=== PATIENT | male | born 1975 | race African-American/Black ===

== ENCOUNTER → 2018-12-20 | Outpatient (CLI) | payer BC ==
--- NOTE | 2018-12-20 13:02 | PCVCIMAG ---
APPROVED REPORT Study performed: 12/20/2018 10:24:26 EXAM: Comprehensive 2D, Doppler, and color-flow Echocardiogram Patient Location: Echo lab Room #: 2Status: routine BSA: 2.06 HR: 60 bpmBP: 172/124 mmHg Rhythm: NSR Other Information Study Quality: Good Risk Factors: Cardiac Risk Factors: HTN, FHX of CAD Indications Hypertension/HDD Elevated CPK 2D Dimensions IVSd: 13.78 (7-11mm)LVOT Diam: 22.39 (18-24mm) LVDd: 48.33 mm PWd: 8.54 (7-11mm)Ascending Ao: 27.79 (22-36mm) LVDs: 27.15 (25-40mm) Left Atrium: 39.25 (27-40mm) Aortic Root: 27.65 mm LV Single Plane 4CH: 55.82 % LV Single Plane 2CH: 55.32 % Biplane EF: 54.9 % Volumes Left Atrial Volume (Systole) Single Plane 4CH: 51.11 mLSingle Plane 2CH: 21.66 mL Biplane LA Volume: 33.00 mLLA ESV Index: 16.00 mL/m2 Aortic Valve AoV Peak Young.: 1.28 m/s AO Peak Gr.: 6.58 mmHgLVOT Max P.10 mmHg LVOT Max V: 1.01 m/s SHELIA Vmax: 3.11 cm2 Mitral Valve E/A Ratio: 1.1 MV Decel. Time: 180.84 ms MV E Max Young.: 0.62 m/s MV A Young.: 0.56 m/s IVRT: 96.89 ms TDI E/Lateral E': 6.89E/Medial E': 8.86 Medial E' Young.: 0.07 m/s Lateral E' Young.: 0.09 m/s Pulmonary Valve PV Peak Young.: 1.11 m/sPV Peak Gr.: 4.94 mmHg Pulmonary Vein P Vein S: 0.60 m/sP Vein A: 0.24 m/s P Vein D: 0.46 m/sP Vein A Dur.: 121.1 msec P Vein S/D Ratio: 1.30 Tricuspid Valve TR Peak Young.: 0.98 m/s TR Peak Gr.: 3.87 mmHg TV Vmax: 0.56 m/sPA Pressure: 11.00 mmHg Left Ventricle The left ventricle is normal size. There is normal LV segmental wall motion. Mild basal septal hypertrophy is present. Left ventricular systolic function is normal. The left ventricular ejection fraction is within the normal range. LVEF is 55%. Right Ventricle The right ventricle is normal size. The right ventricular systolic function is normal. Atria The left atrium size is normal. The right atrium size is normal. Aortic Valve Aortic valve is trileaflet. The aortic valve is normal in structure. No aortic regurgitation is present. There is no aortic valvular stenosis. Mitral Valve The mitral valve is normal in structure. There is no mitral valve regurgitation noted. No evidence of mitral valve stenosis. Tricuspid Valve The tricuspid valve is normal in structure. Trace tricuspid regurgitation. No apparent pulmonary hypertension. Pulmonic Valve The pulmonary valve is normal in structure. Trace pulmonic regurgitation. Great Vessels The aortic root is normal in size. The ascending aorta is normal in size. Aortic arch is normal in caliber. IVC is normal in size and collapses >50% with inspiration. Pericardium There is no pericardial effusion. There is no pleural effusion. <Conclusion> The left ventricle is normal size. Left ventricular systolic function is normal. The right ventricle is normal size. The left atrium size is normal. The right atrium size is normal. The aortic valve is normal in structure. There is no mitral valve regurgitation noted. Trace tricuspid regurgitation.
--- NOTE | 2018-12-20 13:50 | PCVCIMAG ---
APPROVED REPORT Study performed: 12/20/2018 11:18:58 Exam: Stress Echocardiogram Indication: Abn EKG.HTN Patient Location: Echo lab Stress Nurse: Anita Gordillo RN, Gin Estrada RN Room #: 2 Status: routine Ht: 5 ft 6 in HR: 71 bpm BP: 162/120 mmHg Medical History Medical History: HTN Medications: Metoprolol Previous Cardiac Procedures: none Exercise History: Physically active 5 mg Norvasc given at 11:50 for BP. Checked at 12:50 down to 154/102. Proceded with test. Post test 100 mg Metoprolol given. Per instructions from Dr. La/ Mounika Burnett R.N. Procedure The patient underwent an Exercise Stress Test using the Bipin Protocol. Blood pressure, heart rate, and EKG were monitored. An Echocardiogram was performed by field evidence technician in four stages in quad fashion. At peak stress, four selected images were obtained and placed side by side with resting images for comparison. Stress Test Details Stress Test: Exercise stress testing was performed using a Bipin protocol. HR Resting HR: 71 bpmMax Heart Rate (APMHR): 179 bpm Max HR Achieved: 171 bpmTarget HR (85% APMHR): 152 bpm % of APMHR: 95 Recovery HR: 92 bpm HR response to stress: Normal HR response to stress BP Resting BP: 154/120 mmHg Max BP: 220/98 mmHg Recovery BP: 180/112 mmHg BP response to stress: Abnormal hypertensive response to stress. ECG Resting ECG: Sinus Rhythm, NSSTT changes Stress ECG: Sinus Rhythm ST Change: Non-ischemic Arrhythmia: None Recovery ECG: Sinus Rhythm Recovery ST Change: Non-ischemic Recovery Arrhythmia: None Clinical Reason for Termination: Elevated BP Stress Symptoms: Fatigue Exercise duration: 10 min 00 sec Highest Stage Achieved: Stage 4: 4.2 mph at 16% grade. Exercise capacity: 13.1 METs Overall Exercise Capacity for Age: Good Scale: Active Angina Score: None No complications. Stress ECG Conclusion The patient exercised according to the BIPIN protocol for 10:00 mins; achieving a work level of 13.10 METS. The resting heart rate of 71 bpm suman to a maximum heart rate of 171 bpm. This value represent 95% of the maximal, age-predicted heart rate. The resting blood pressure of 162/120mmHg, suman to a maximum blood pressure of 220/98mmHg. The exercise test was stopped due to elevated blood pressure and fatigue. Pre-Stress Echo The resting Echocardiogram showed normal left ventricular contractility with an estimated Ejection Fraction of about 55-60%. Normal wall motion in all segments on baseline images. Post-Stress Echo The stress Echocardiogram showed normal left ventricular contractility with an estimated Ejection Fraction of about 65-70%. Normal augmentation of wall motion in all segments on post stress images. Clinical No clinical or ECG evidence for ischemia. Conclusion Clinical Response: Non-ischemic Exercise Capacity: Above average Stress ECG Response: Non-ischemic Stress Echo Images: Non-ischemic No clinical, EKG or echocardiographic evidence for ischemia. No echocardiographic evidence for exercise induced ischemia. Normal stress echocardiogram with maximal exercise stress. <Conclusion> No clinical, EKG or echocardiographic evidence for ischemia. No echocardiographic evidence for exercise induced ischemia. Normal stress echocardiogram with maximal exercise stress.
== END | disposition home or self-care (01) ==
LOC: PCVCIMAG 10:46
PROVIDERS: ATTEND Internal Medicine Cardiovascular Disease
DX: I10 Essential (primary) hypertension (principal); R94.31 Abnormal electrocardiogram [ECG] [EKG]; R00.2 Palpitations
CPT/HCPCS: 93306; 93351